=== PATIENT | female | born 1980 | race Caucasian/White ===

== ENCOUNTER → 2018-05-03 | Outpatient (CLI) | payer OTHER ==
[~2018-05-03] MED LIST: ALBU90OI INH; AZIT250 PO; BENZ100A PO; CEPH500 PO; CIPR500 PO; CRUTCH2 USE; DOXY100; DOXY100 PO; ERYSTE250 PO; HYDACE5; HYDACE5 PO; HYDACE5325 PO; HYDR1TAB94 PO; IBUHYD PO; IBUP800 PO; LEVFLO500 PO; MEDR150I; METR500; NAPR550 PO; ONDA8ODT MM; OXYACE5T PO; PHENA200 PO; PROACE100 PO; PROC5 PO; PROG100 PO; PROM25 PO; PROM25S PR; Percocet 5-3251 EACH PO; RXPROACE PO; RXSULTRIDS PO; SULTRIDS PO; TRAM50 PO; Ultram50 MG PO
== END ==
LOC: LAB 12:00 → LAB SHORT 12:00
DX: Z20.2 Contact with and (suspected) exposure to infections with a predominantly sexual mode of transmission (principal)
CPT/HCPCS: 87070; 87077; 87205

== ENCOUNTER 2019-05-21 13:05 | Emergency (ER) | payer OTHER ==
[~2019-05-21] VITALS: Ht 177.8 cm; Wt 88.9 kg
[~2019-05-21 13:05] MED LIST changes: +Vibramycin100 MG PO
[2019-05-21] MEDS ORDERED: Crutch1 EACH MISC (14:20)
[2019-05-21] MEDS ORDERED: Ultram50 MG PO (14:27)
== END 2019-05-21 14:42 | disposition home or self-care (01) ==
LOC: ER 13:05
DX: T84.197A Other mechanical complication of internal fixation device of bone of left lower leg, initial encounter (principal); F17.210 Nicotine dependence, cigarettes, uncomplicated; W01.0XXA Fall on same level from slipping, tripping and stumbling without subsequent striking against object, initial encounter
CPT/HCPCS: 29515; 73610; 99283-25

== ENCOUNTER 2019-08-03 | Emergency (ER) | payer OTHER ==
[~2019-08-03] VITALS: Ht 175.3 cm; Wt 95.2 kg
[~2019-08-03] MED LIST changes: +Crutch1 EACH MISC
== END 2019-08-03 01:09 | disposition home or self-care (01) ==
LOC: ER
DX: S09.90XA Unspecified injury of head, initial encounter (principal); W22.8XXA Striking against or struck by other objects, initial encounter; Z88.0 Allergy status to penicillin; Z88.8 Allergy status to other drugs, medicaments and biological substances; Z88.5 Allergy status to narcotic agent; F17.210 Nicotine dependence, cigarettes, uncomplicated
CPT/HCPCS: 99283